=== PATIENT | female | born 1985 | race Caucasian/White ===

== ENCOUNTER → 2018-06-02 | Outpatient (CLI) | payer BC | LOC: FIMAGING 07:23 | PROVIDERS: ATTEND Hospitalist | DX: O09.522 Supervision of elderly multigravida, second trimester (principal); Z3A.19 19 weeks gestation of pregnancy; Z86.73 Personal history of transient ischemic attack (TIA), and cerebral infarction without residual deficits ==

== ENCOUNTER → 2018-07-03 | Outpatient (CLI) | payer BC | LOC: FIMAGING 07:51 | PROVIDERS: ATTEND Obstetrics & Gynecology | DX: O09.812 Supervision of pregnancy resulting from assisted reproductive technology, second trimester (principal); O26.22 Pregnancy care for patient with recurrent pregnancy loss, second trimester; Z3A.24 24 weeks gestation of pregnancy ==

== ENCOUNTER 2018-10-16 06:10 | Inpatient (IN) | payer BC ==
[2018-10-16] MEDS ORDERED: LIDOCAINE 1% 300 MG/30 ML SDV SC PRN (06:16)
[2018-10-16] MEDS ORDERED: LR 500 ML IV PRN (06:16)
[2018-10-16] MEDS ORDERED: EPSOM SALT 454 GM TP PRN (06:16)
[2018-10-16] MEDS ORDERED: OXYTOCIN/RINGERS LACTATE 1,000 ML IV PRN (06:16)
[2018-10-16] MEDS ORDERED: IBUPROFEN 600 MG TAB PO PRN (06:16)
[2018-10-16] MEDS ORDERED: MISOPROSTOL 200 MCG TAB PR PRN (06:16)
[2018-10-16] MEDS ORDERED: LR 1,000 ML IV PRN (06:16)
[2018-10-16] MEDS ORDERED: OLIVE OIL 118 ML BTL MISC PRN (06:16)
[2018-10-16] MEDS ORDERED: OXYTOCIN/RINGERS LACTATE 500 ML IV SCH (06:16)
[2018-10-16 06:58] LABS: PLATELET COUNT 186 10^3/uL (150-400)
[2018-10-16] MEDS ORDERED: MAGNESIUM HYDROXIDE 30 ML UDCUP PO PRN (08:31)
[2018-10-16] MEDS ORDERED: BISACODYL 10 MG SUPP PR PRN (08:31)
[2018-10-16] MEDS ORDERED: POLYETHYLENE GLYCOL 3350 17 GM PKT PO PRN (08:31)
[2018-10-16] MEDS ORDERED: LACTULOSE 20 GM/30 ML UDCUP PO PRN (08:31)
[2018-10-16] MEDS ORDERED: LORazepam 2 MG/ML INJ IVP PRN (08:45)
[2018-10-16] MEDS ORDERED: CALCIUM CARBONATE 500 MG CHEWABLE TAB PO PRN (09:03)
[2018-10-16] MEDS: SIMETHICONE 80 MG TAB CHEW PO SCH (09:08)
--- NOTE | 2018-10-16 10:37 | GHP ---
[f rep st] PREOP HISTORY AND PHYSICAL DATE OF ADMISSION: 10/16/2018 HISTORY UPON ADMISSION: The patient is a 33-year-old, G3, P0, A2, at 39 weeks' gestation with an est imated due date of 10/23/2018, who presents for elective induction of labor. The patient had previou sly been planned for an elective primary section due to a lifelong phobia of labor and vagin al ; however, recent discussions, the patient now feels like she wants to try labor. The patien t has only recently considered this, so really has not done labor planning. The patient was found to have a favorable cervix on an office visit on 10/15, with a cervix 2-3 cm dilated, 90% effa deniz, and the head at 0 station. The patient did not need a Cavazos catheter for cervical ripenin g. The patient reports good movement and no leakage of fluid. She had slight vaginal bleeding last p.m. after the vaginal exam. The patient has felt lower menstrual cramping and had what she th ought was bladder spasms yesterday and had a urinalysis done at the office, which showed moderate ket ones and trace protein. The patient has reported having bowel irritation and nausea throughout the d ay yesterday. She was having quite a bit of loose stools and diarrhea over the last several weeks. She did have a workup with a stool culture with negative C difficile, negative Salmonella, negative L isteria testing. The patient has a history of bowel issues in the past. The patient is here for adm ission and has been advised of the plan of Pitocin gradually increasing with pain management with nit haley, epidural, and anti-anxiety medicines if needed. The patient has significant worry about feelin g out of control and going into a panic attack, but states that she has never had anxieties for other issues in life and has never had a panic attack before. PAST HISTORY: The patient conceived with IVF in [place] and transferred care after moving to [place] at 14 weeks. 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 The patient also had early testing which was all normal. The patient had periodic issues with rash is in the , but that is not uncommon for the patient. The patient had an ultrasound at 20 weeks with a maternal- specialist, and the baby estimated 93rd percenti le with weight. The patient had a followup ultrasound at 30 weeks, and the estimated weight wa s 76th percentile with the BPD measuring greater than the 98th percentile. The patient has a history in 2012 of a TIA, which was found to be a vertebral artery dissection. The records from that event from [place] were reviewed by the maternal- specialist. The patient at that time in [place] martin d seen a clinching machine operator and has had coagulopathy workup that was all negative. The patient states she was also seen by a neurologist in [place] who did not feel the patient had any real restrictions for or labor or general life activities. She was advised to be on low-dose aspirin, which she has continued through the until 2 days ago. The patient also had an echo done due to the history of the IVF, and this was negative. The patient had the above-mentioned GI issues predominant ly after 35 weeks and had the negative workup. labs include maternal blood type B positive with negative antibody screen. Initial CBC reve aled a hematocrit of 39%, and mid , this dropped to 36%. Platelets stable through . RPR nonreactive. Rubella immune. Hepatitis B surface antigen negative. HIV negative. Patient h ad glucose testing in December and also a repeat at 28 weeks, and this was normal. Patient has the pos itive carrier status for 2 rare disorders, and the is negative. Urine drug screen was negati ve. Urinalysis and culture negative. Gonorrhea and chlamydia negative. Verify chromosome testing w as negative, and negative MSAFP. Patient immune to chickenpox and nonimmune to toxo. GBS culture wa s negative. 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 H istory of a large splenic cyst removed in 2009. History of pneumonia in 2015. SIBA noted prior to t he IVF. History of an abnormal Pap smear with positive HPV 15 years ago, with negative Pap since. P atient denies any common history of anxiety or depression, but reports very specific anxiety lifelong for labor and . 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 Deviated septum in 2009. PAST OBSTETRIC HISTORY: Spontaneous AB at 7 weeks in 2011 and a spontaneous AB in May 2017 at 7- 1/2 weeks managed with a D and C, and noted to be a trisomy 13. SOCIAL HISTORY: The patient is , lives with her . The patient is a nonsmoker. No alc ohol use since initiating IVF, and only social alcohol outside of that. No drug use. ALLERGIES: Penicillin, causing hives; and lactose, causing bloating. CURRENT MEDICATIONS: vitamins, low-dose aspirin up to 2 days ago, vitamin D. LABS UPON ADMISSION: The patient had a CBC on admission showing a white count of 9, hemoglobin of 13 , hematocrit of 38, platelets 186,000. Patient had labs done on 10/03, evaluating itchiness of the p alms, which revealed normal liver functions and bile acids. PHYSICAL EXAMINATION UPON ADMISSION: GENERAL: The patient is a well-developed, well-nourished white female in no physical distress, but anxious upon admission. VITAL SIGNS: The patient has normal vi oscar signs with blood pressure 113/68, patient is afebrile, and other vital signs have been normal. S nursing documentation for full details. Initial monitoring on exam reveals an initial reactive NS T with accelerations and good variability, with a baseline in the 130s to 140s. Continuous monitorin g continues to show a category 1 tracing with great accelerations and no sign of any decelerations. No contractions initially noted; however, now on initiating Pitocin, the patient is having mild contr actions. PELVIC: No pelvic exam is repeated, with the recent exam in the office showing 2-3 cm dila tariq, 90% effaced, and 0 station. By Harry's, the back feels up on the right in vertex presentation . EXTREMITIES: Nontender and no edema. ASSESSMENT: Intrauterine at 39 weeks' gestation with elective induction of labor to optimi ze patient feeling control of the situation, as she has high anxiety about labor and delivery. The p atient has been encouraged to attempt labor as opposed to a primary elective section. We wi ll optimize having the patient have choices with pain management, and we will continue monitoring to ensure baby safety. Patient will try Mylicon and Tums to see if she can help her stomach discomfort. GBS negative. Blood type B positive. History of transient ischemic attack with spontaneous verteb ral artery dissection in 2012, and has been on low-dose aspirin. Estimated weight at 30 weeks, 76th percentile, with biparietal diameter greater than 98th percentile. PLAN: We will continue to slowly increase Pitocin, and the patient plans for an epidural when she ne eds it. We will perform AROM after the epidural. /[id number]/MODL
--- NOTE | 2018-10-16 11:08 | OBPROG ---
Labor Progress Note Assessment/Plan: Assessment: IUP at 39 wks elective IOL Plan: cont pitocin, on 8 mu/min currently - minimal intensity. Will AROM if pit up to 20 mu/min and minimal intensity. PAIGE before if desired. 10/16/18 11:02 Subjective/Intrapartum Course: 10/16/18 11:04 Pt doing great - feels very relaxed. occas feels tightening - no pain. disc IUPC prn if cord compression is ongoing issue or ctxn monitoring prn. off/on nausea and wants to try zofran. on 8 mu/min pit - cat I tracing except one small variable with ctxn Objective: 10/16/18 06:45 Patient ABO/Rh B POSITIVE 10/16/18 06:45 - SVE Membranes: Intact - Contraction Pattern Assessment Current Contraction Pattern: Regular (q 5-7 min on 8 pit) - FHR Assessment Phillips FHR (bpm): 140 FHR Pattern Variability: Moderate FHR Category: 2 (one small variable with ctxn - o/w cat I) Oxytocin Orders Assessment - Pre-Induction/Augmentation Assessment Gestational Age: 39 week(s) and 0 day(s) ICD10 Worksheet Patient Problems: Problems Problem Status Onset Encounter for induction of labor Acute
[2018-10-16] MEDS ORDERED: ONDANSETRON DISINTEGRATING 4 MG TAB PO PRN (11:09)
[2018-10-16] MEDS ORDERED: ONDANSETRON DISINTEGRATING 4 MG TAB ONE (11:19)
[2018-10-16] MEDS ORDERED: LIDOCAINE 1% 300 MG/30 ML SDV ONE (13:47)
[2018-10-16] MEDS ORDERED: OLIVE OIL 118 ML BTL MISC ONE (13:47)
[2018-10-16] MEDS ORDERED: TERBUTALINE SULFATE 1 MG/ML VIAL ONE (13:48)
[2018-10-16] MEDS ORDERED: OXYTOCIN 10 UNIT/ML VIAL ONE (13:48)
[2018-10-16] MEDS ORDERED: MISOPROSTOL 200 MCG TAB ONE (13:48)
[2018-10-16] MEDS ORDERED: AMMONIA AROMATIC 1 EACH AMP IH ONE (13:48)
--- NOTE | 2018-10-16 14:39 | OBPROG ---
Labor Progress Note Assessment/Plan: Assessment: IUP at 39 wks elective IOL - extreme anxiety about labor and hx vertebral artery dissection, TIA Plan: cont pitocin, on 20 mu/min currently - minimal intensity. AROM done with nitrous. PAIGE if desired. 10/16/18 11:02 10/16/18 14:34 Subjective/Intrapartum Course: 10/16/18 11:04 Pt doing great - feels very relaxed. occas feels tightening - no pain. disc IUPC prn if cord compression is ongoing issue or ctxn monitoring prn. off/on nausea and wants to try zofran. on 8 mu/min pit - cat I tracing except one small variable with ctxn 10/16/18 14:36 Pt doing well. discussed AROM as pt on 20 mu/min pit and not uncomfortable. Pt declined PAIGE now and used nitrous during AROM - 14:25, clear. cx 3-4/95/0 will get PAIGE when ready - reports strong cramping now. Objective: 10/16/18 06:45 Patient ABO/Rh B POSITIVE 10/16/18 06:45 - SVE Dilation (cm): 3 (3-4) Effacement (%): 90 Station: 0 Membranes: Intact Amniotic Fluid Color: Clear - Contraction Pattern Assessment Current Contraction Pattern: Regular (q 53-4 min on 20 pit) - FHR Assessment Phillips FHR (bpm): 140 FHR Pattern Variability: Moderate FHR Category: 1 - Procedures Non-surgical Procedures: Amniotomy (14:25) Oxytocin Orders Assessment - Pre-Induction/Augmentation Assessment Gestational Age: 39 week(s) and 0 day(s) ICD10 Worksheet Patient Problems: Problems Problem Status Onset Encounter for induction of labor Acute
[2018-10-16] MEDS ORDERED: fentaNYL 2MCG/ML/BUP 0.1% RTU 100 ML BAG EP ONE (15:19)
[2018-10-16] MEDS ORDERED: PHENYLEPHRINE HCL 100 MCG/ML SYR IVP PRN ×2 (15:55→22:32)
[2018-10-16] MEDS ORDERED: NALOXONE HCL 0.4 MG/ML INJ IVP PRN ×3 (15:55→22:36)
[2018-10-16] MEDS ORDERED: ONDANSETRON 4 MG/2 ML VIAL IVP PRN ×2 (15:55→22:32)
[2018-10-16] MEDS ORDERED: fentaNYL 2MCG/ML/BUP 0.1% RTU 100 ML EP SCH (16:00)
[2018-10-16] MEDS ORDERED: LR 500 ML IV SCH (16:00)
--- NOTE | 2018-10-16 16:00 | PREANESOB ---
Obstetric Pre-Anesthesia Info - General Info Proposed Procedure: vaginal delivery : 3 Para: 0 CONNOR: 10/23/18 Gestational Age: 39 week(s) and 0 day(s) - Info Status: Full Term Monitors: External FHR Pattern: Reassuring - Labor Status Cervical Dilation per last OB SVE: 3 (3-4) Station per last OB SVE: 0 Amniotic Fluid Color: Clear Pitocin: In Use Labor Epidural: Proposed Anesthesia ROS: h/o TIA (vertebral artery) about 7 years ago, no sequelae no GERD, no respiratory issues, no cardiac history Allergies/Adverse Reactions: Allergy/AdvReac Type Severity Reaction Status Date / Time Penicillins Allergy Hives Verified 10/10/18 16:38 Visit Medications: Generic Name Dose Route Start Last Admin Trade Name Freq PRN Reason Stop Dose Admin Bisacodyl 10 mg 10/16/18 08:31 Dulcolax Rectal LA 04/14/19 08:30 DAILY PRN Constipation Protocol Calcium Carbonate 500 mg 10/16/18 09:03 Tums PO 04/14/19 09:02 TID PRN Indigestion Lactated Ringer's 500 mls @ 500 mls/hr 10/16/18 06:16 Lr IV PRN PRN Maternal Hypotension Lactated Ringer's 1,000 mls @ 0 mls/hr 10/16/18 06:16 Lr IV 10/17/18 06:15 PRN PRN SEE PROTOCOL CONDITIONS Protocol Per Protocol Oxytocin/Lactated Ringer's 500 mls @ 0 mls/hr 10/16/18 06:16 Pitocin 30 Units/Lr (Premix) IV 04/14/19 06:15 CONT GEOVANI Protocol Per Protocol Oxytocin/Lactated Ringer's 1,000 mls @ 125 mls/hr 10/16/18 06:16 Pitocin 20 Units/Lr (Premix) IV PRN PRN Post bleeding Fentanyl/Bupivacaine HCl 100 mls @ 0 mls/hr 10/16/18 16:00 Fentanyl/Bupivacaine/Ns 2 Mcg/Ml 0.1% (Premix EP 10/26/18 15:59 CONT GEOVANI Protocol As Directed Lactated Ringer's 500 mls @ 0 mls/hr 10/16/18 16:00 Lr IV 04/14/19 15:59 CONT [facility] As Directed Ibuprofen 600 mg 10/16/18 06:16 Motrin PO ONCE PRN post , pain Lactulose 20 gm 10/16/18 08:31 Cephulac PO 04/14/19 08:30 TID PRN Constipation Protocol Lidocaine HCl 300 mg 10/16/18 06:16 Lidocaine Hcl 1% SC 04/14/19 06:15 ONCE PRN episiotomy Lorazepam 1 mg 10/16/18 08:45 Ativan Injection IVP 04/14/19 08:44 Q4HRS PRN Anxiety, Unable to Take PO Magnesium Hydroxide 30 ml 10/16/18 08:31 Milk Of Magnesia PO 04/14/19 08:30 DAILY PRN Constipation Protocol Magnesium Sulfate 454 gm 10/16/18 06:16 Epsom Salt TP 04/14/19 06:15 Q1H PRN perineal discomfort Misoprostol 800 - 1,000 mcg 10/16/18 06:16 Cytotec LA ONCE PRN Vaginal Atony/Bleeding Naloxone HCl 0.4 mg 10/16/18 15:55 Narcan IVP 04/14/19 15:54 PRN PRN Respiratory depression Benkelman Oil 118 ml 10/16/18 06:16 Sweet Oil MISC 04/14/19 06:15 ONCE PRN perineal massage Ondansetron HCl 4 mg 10/16/18 11:09 Zofran Odt PO 04/14/19 11:08 Q4HRS PRN Nausea/Vomiting, Use 1st Ondansetron HCl 4 mg 10/16/18 15:55 Zofran IVP 10/17/18 15:54 Q4HRS PRN Nausea/Vomiting, Can't Take PO Phenylephrine HCl 100 mcg 10/16/18 15:55 Neosynephrine IVP 04/14/19 15:54 .Q2M PRN Hypotension Polyethylene Glycol 17 gm 10/16/18 08:31 Miralax PO 04/14/19 08:30 DAILY PRN Constipation, patient prefers Protocol Senna/Docusate Sodium 1 - 2 tab 10/16/18 09:00 Senokot-S PO 04/14/19 08:59 BID GEOVANI Protocol Simethicone 80 mg 10/16/18 09:00 10/16/18 09:08 Mylicon PO 04/14/19 08:59 80 mg PCHS GEOVANI Administration Discontinued Medications Generic Name Dose Route Start Last Admin Trade Name Freq PRN Reason Stop Dose Admin Ammonia (Aromatic Spirit) Confirm 10/16/18 13:48 Ammonia Aromatic Administered 10/16/18 13:49 Dose 1 each IH .STK-MED ONE Fentanyl/Bupivacaine HCl Confirm 10/16/18 15:19 Fentanyl/Bupivacaine/Ns 2 Mcg/Ml 0.1% (Premix Administered 10/16/18 15:20 Dose 100 ml EP .STK-MED ONE Lidocaine HCl Confirm 10/16/18 13:47 Lidocaine Hcl 1% Administered 10/16/18 13:48 Dose 300 mg .ROUTE .STK-MED ONE Misoprostol Confirm 10/16/18 13:48 Cytotec Administered 10/16/18 13:49 Dose 1,000 mcg .ROUTE .STK-MED ONE Benkelman Oil Confirm 10/16/18 13:47 Sweet Oil Administered 10/16/18 13:48 Dose 118 ml MISC .STK-MED ONE Ondansetron HCl Confirm 10/16/18 11:19 Zofran Odt Administered 10/16/18 11:20 Dose 4 mg .ROUTE .STK-MED ONE Oxytocin Confirm 10/16/18 13:48 Pitocin Administered 10/16/18 13:49 Dose 40 unit .ROUTE .STK-MED ONE Terbutaline Sulfate Confirm 10/16/18 13:48 Brethine Administered 10/16/18 13:49 Dose 1 mg .ROUTE .STK-MED ONE - Anesthesia History Response to Local Anesthetics: Normal Anesthesia & Operative History: No Prior Problems - Social History Substance Use/Abuse: Denies - Vital Signs Latest Vital Signs (Nursing): see nursing notes Height/Weight (Nursing): Height 170.18 cm Weight 73.482 kg Weight: 170 kg Height: 73 cm - Focused Exam Neck exam: FROM Mallampati Score: Class 2 Mouth exam: normal dental/mouth exam Pulmonary: clear to auscultation Cardiovascular: regular rate and rhythym Labs: 10/16/18 06:45 Patient ABO/Rh B POSITIVE 10/16/18 06:45 - Plan Anesthetic Plan: PAIGE Consent Signed and on Chart: Yes Urgent/Emergent Case: Juan butler completed preop but documented later for safe timely pt care General Comments: Easy PAIGE placement on first pass
[2018-10-16] MEDS ORDERED: ACETAMINOPHEN 500 MG TAB PO ONE (19:40)
--- NOTE | 2018-10-16 20:18 | OBPROG ---
Labor Progress Note Assessment/Plan: Assessment: IUP at 39 wks elective IOL - extreme anxiety about labor and hx vertebral artery dissection, TIA great progress today and complete approx 6:15 pushing now about 1 1/2 hrs - making progress Plan: cont pitocin, on 20 mu/min currently - just reduced from 22. AROM. PAIGE. cont pushing 10/16/18 11:02 10/16/18 14:34 10/16/18 20:15 Subjective/Intrapartum Course: 10/16/18 11:04 Pt doing great - feels very relaxed. occas feels tightening - no pain. disc IUPC prn if cord compression is ongoing issue or ctxn monitoring prn. off/on nausea and wants to try zofran. on 8 mu/min pit - cat I tracing except one small variable with ctxn 10/16/18 14:36 Pt doing well. discussed AROM as pt on 20 mu/min pit and not uncomfortable. Pt declined PAIGE now and used nitrous during AROM - 14:25, clear. cx 3-4/95/0 will get PAIGE when ready - reports strong cramping now. 10/16/18 20:18 great progress today with complete approx 6:15. began having slight increase of baseline since approx 7:15 from 140s. low grade temp and given tyl at approx 7:45. making progress with pushing -- pt frustrated with demand of pushing Objective: 10/16/18 06:45 Patient ABO/Rh B POSITIVE 10/16/18 06:45 - SVE Dilation (cm): 10 Effacement (%): 100 Station: +1 Membranes: AROM Amniotic Fluid Color: Clear Dilation Complete Date: 10/16/18 Dilation Complete Time: 18:15 - Contraction Pattern Assessment Current Contraction Pattern: Regular (q 3 min on 20 pit) - FHR Assessment Phillips FHR (bpm): 170 FHR Pattern Variability: Moderate FHR Category: 2 ( tachycardia - baseline risen since 19:15 - given tyl 19: 45, good variability and accels) - Procedures Non-surgical Procedures: Amniotomy (14:25) Oxytocin Orders Assessment - Pre-Induction/Augmentation Assessment Gestational Age: 39 week(s) and 0 day(s) ICD10 Worksheet Patient Problems: Problems Problem Status Onset Encounter for induction of labor Acute
[2018-10-16] MEDS ORDERED: AZITHROMYCIN IV 500 MG in NS 250 ML IV ONE (21:12)
[2018-10-16] MEDS ORDERED: CEFAZOLIN 2 GM/DEXTROSE/100 ML BAG IV ONE (21:17)
[2018-10-16] MEDS ORDERED: LIDO/EPI 2% **for epidural** 20 ML SDV ONE (21:18)
--- NOTE | 2018-10-16 21:18 | OBPROG ---
Labor Progress Note Assessment/Plan: Assessment: IUP at 39 wks -- INTOL TO PUSHING - ELEV BASELINE TO 170-180S ATTEMPTED VAVD - NO DESCENT - PROCEED TO C/S elective IOL - extreme anxiety about labor and hx vertebral artery dissection, TIA great progress today and complete approx 6:15 pushing now about 2 hrs Plan: attempted VAVD but no descent with 3 pushes 10/16/18 11:02 10/16/18 14:34 10/16/18 20:15 10/16/18 21:13 Subjective/Intrapartum Course: 10/16/18 11:04 Pt doing great - feels very relaxed. occas feels tightening - no pain. disc IUPC prn if cord compression is ongoing issue or ctxn monitoring prn. off/on nausea and wants to try zofran. on 8 mu/min pit - cat I tracing except one small variable with ctxn 10/16/18 14:36 Pt doing well. discussed AROM as pt on 20 mu/min pit and not uncomfortable. Pt declined PAIGE now and used nitrous during AROM - 14:25, clear. cx 3-4/95/0 will get PAIGE when ready - reports strong cramping now. 10/16/18 20:18 great progress today with complete approx 6:15. began having slight increase of baseline since approx 7:15 from 140s. low grade temp and given tyl at approx 7:45. making progress with pushing -- pt frustrated with demand of pushing 10/16/18 21:18 Pt very fatigued and frustrated - on exam with pushing still +1 -- adeq pelvis and pt desired attempt with vacuum - no descent and significant decel with third attempt. FHT baseline still up to 180s but maintaining variability. rec proceeding to c/s Objective: 10/16/18 06:45 Patient ABO/Rh B POSITIVE 10/16/18 06:45 - SVE Dilation (cm): 10 Effacement (%): 100 Station: +1 Membranes: AROM Amniotic Fluid Color: Clear Dilation Complete Date: 10/16/18 Dilation Complete Time: 18:15 - Contraction Pattern Assessment Current Contraction Pattern: Regular (q 3 min on 20 pit) - FHR Assessment Twin A FHR (bpm): 170 FHR Pattern Variability: Moderate FHR Category: 2 (tachy) - Procedures Non-surgical Procedures: Amniotomy (14:25) Oxytocin Orders Assessment - Pre-Induction/Augmentation Assessment Gestational Age: 39 week(s) and 0 day(s) ICD10 Worksheet Patient Problems: Problems Problem Status Onset Encounter for induction of labor Acute
[2018-10-16] MEDS ORDERED: CLINDAMYCIN 900 MG/DEXTROSE 50 ML IV ONE (21:21)
[2018-10-16] MEDS ORDERED: PROPOFOL 200 MG/20 ML VIAL ONE (21:22)
[2018-10-16] MEDS ORDERED: ceFAZolin 2 GM/DEXTROSE 100 ML IV ONE (21:30)
[2018-10-16] MEDS ORDERED: MIDAZOLAM 2 MG/2 ML VIAL ONE (21:46)
[2018-10-16] MEDS ORDERED: morphINE PF 5 MG/10 ML INJ ONE (21:56)
[2018-10-16] MEDS ORDERED: PHENYLEPHRINE HCL 100 MCG/ML SYR ONE ×2 (22:28)
[2018-10-16] MEDS ORDERED: MEPERIDINE 25 MG/0.5 ML AMP IVP PRN (22:32)
[2018-10-16] MEDS ORDERED: fentaNYL 100 MCG/2 ML INJ IVP PRN (22:32)
[2018-10-16] MEDS ORDERED: METOCLOPRAMIDE 10 MG/2 ML VIAL IVP PRN (22:32)
[2018-10-16] MEDS ORDERED: LABETALOL HCL 5 MG/ML 20 ML MDV IVP PRN (22:32)
--- NOTE | 2018-10-16 23:04 | POSTANESTH ---
Post Anesthetic Evaluation Cardiovascular Status: Normal, Stable Respiratory Status: Normal, Stable Level of Consciousness/Mental Status: Can Participate in Eval Pain Control: Adequate, Prn Tx Ordered Nausea/Vomiting Control: Adequate, Prn Tx Ordered Complications Possibly Related to Anesthesia: None Noted (Pt doing well s/p PAIGE converted to C/S. Epidural used for C/S. No complications.)
[2018-10-16] MEDS ORDERED: oxyCODONE IR 5 MG TAB PO PRN (23:09)
[2018-10-16] MEDS ORDERED: IBUPROFEN 600 MG TAB PO SCH (23:30)
[2018-10-16] MEDS: KETOROLAC 30 MG/1 ML SDV IVP SCH (23:37)
--- NOTE | 2018-10-16 23:40 | OBDEL ---
Info Type: Primary Presentation at Delivery: Vertex L&D Analgesia/Anesthesia Type: Epidural (with duramorph) GBS+: No Intrapartum Medications: Generic Name Dose Route Start Last Admin Trade Name Freq PRN Reason Stop Dose Admin Ondansetron HCl 4 mg 10/16/18 11:09 10/16/18 16:40 Zofran Odt PO 04/14/19 11:08 4 mg Q4HRS PRN Administration Nausea/Vomiting, Use 1st Phenylephrine HCl 100 mcg 10/16/18 15:55 10/16/18 23:03 Neosynephrine IVP 04/14/19 15:54 100 mcg .Q2M PRN Administration Hypotension Simethicone 80 mg 10/16/18 09:00 10/16/18 09:08 Mylicon PO 04/14/19 08:59 80 mg PCHS GEOVANI Administration Discontinued Medications Generic Name Dose Route Start Last Admin Trade Name Freq PRN Reason Stop Dose Admin Acetaminophen 1,000 mg 10/16/18 19:40 10/16/18 19:44 Tylenol PO 10/16/18 19:41 1,000 mg ONCE ONE Administration - Hospital Course Intrapartum: 10/16/18 11:04 Pt doing great - feels very relaxed. occas feels tightening - no pain. disc IUPC prn if cord compression is ongoing issue or ctxn monitoring prn. off/on nausea and wants to try zofran. on 8 mu/min pit - cat I tracing except one small variable with ctxn 10/16/18 14:36 Pt doing well. discussed AROM as pt on 20 mu/min pit and not uncomfortable. Pt declined PAIGE now and used nitrous during AROM - 14:25, clear. cx 3-4/95/0 will get PAIGE when ready - reports strong cramping now. 10/16/18 20:18 great progress today with complete approx 6:15. began having slight increase of baseline since approx 7:15 from 140s. low grade temp and given tyl at approx 7:45. making progress with pushing -- pt frustrated with demand of pushing 10/16/18 21:18 Pt very fatigued and frustrated - on exam with pushing still +1 -- adeq pelvis and pt desired attempt with vacuum - no descent and significant decel with third attempt. FHT baseline still up to 180s but maintaining variability. rec proceeding to c/s Vaginal Delivery - Labor and Delivery Amniotic Fluid Color: Clear Dilation Complete Date: 10/16/18 Dilation Complete Time: 18:15 Non-surgical Procedures: Amniotomy (14:25) Cord Gases: Cord Gases Cord Blood PCO2 37.8 mmHg (37-60) 10/16/18 22:40 Cord Base Excess -9.1 mEq/L (-13.6--3.2) 10/16/18 22:40 Cord ABG pH 7.27 (7.10-7.37) 10/16/18 22:40 Cord VBG pH 7.34 (7.20-7.42) 10/16/18 22:40 Operative Report - Delivery Pre-op Diagnoses: IUP at 39 wks, intolerance to descent Post-op Diagnoses: same, delivered History of Prior Section: No Nulliparous Prior to Delivery: No Indications for Current Section: Non-reas. Status Procedure: Unscheduled, Low Transverse Surgeon: Praveena Hamilton Strategic Planning Specialist: Fallon Voss Anesthesiologist: Dustin Starks Complications: None Findings: normal ut, tubes and ovaries. brito replaced in OR and concentrated/ blood tinged urine. clear amniotic fluid. low head - upon elevating upwards the head rotated from OP to transverse - right shoulder directly up behind symphysis. No NC - vigorous upon delivery with good tone and crying. Bruised face with blanching appearance on forehead. cord clamp after 1 min and off to warmer. cord gases obtained. placenta removed easily and intact. ut externalized and interior wiped clean. hysterotomy inspected and inferior ext on left angle. furthest point identified and ext closed first. good hemostasis. hysterotomy then closed. ext and hysterotomy closed with second imbricating layer. minimal bovie needed. irrigation done. ut replaced and good hemostasis. rectus m reapproximated. UOP 50 cc concentrated urine. IV Fluid (ml): 1,000 EBL: 1000 Cord Gases: Cord Gases Cord Blood PCO2 37.8 mmHg (37-60) 10/16/18 22:40 Cord Base Excess -9.1 mEq/L (-13.6--3.2) 10/16/18 22:40 Cord ABG pH 7.27 (7.10-7.37) 10/16/18 22:40 Cord VBG pH 7.34 (7.20-7.42) 10/16/18 22:40 Assissted Delivery Assisted Delivery Type: Vacuum Pulls (Total): 3 Assisted Delivery Comment: VAVD attempted in room. significant decel with third pull and lack of descent - advised to proceed with c/s Gallina Data CONNOR: 10/23/18 Gestational Age: 39 week(s) and 0 day(s) Phillips Delivery Date: 10/16/18 Delivery Time: 21:50 Sex of : Male Weight (gm): 3765 g (8#5) Score (1 Min): 8 Score (5 Min): 9 ICD10 Worksheet Patient Problems: Problems Problem Status Onset S/P primary low transverse Acute
[2018-10-17] MEDS: SIMETHICONE 80 MG TAB CHEW PO SCH ×8 (01:04→21:03)
[2018-10-17] MEDS: SENNOSIDES/DOCUSATE SODIUM TAB PO SCH ×4 (01:05→21:04)
[2018-10-17] MEDS: KETOROLAC 30 MG/1 ML SDV IVP SCH ×4 (05:46→18:25)
[2018-10-17] MEDS: ACETAMINOPHEN 325 MG TAB PO SCH ×4 (07:07→23:33)
--- NOTE | 2018-10-17 09:41 | OBPP ---
Progress Note Assessment/Plan: Assessment: 1) 33 y/o G3 now P1 s/p PCS secondary to arrest of descent and vacuum- assistance x 3 with tachy POD #1 - pt is stable 2) Anemia - pt is asymptomatic Plan: Continue routine post-op care Encourage ambulation Brito to be removed this am Will start iron support prn 10/17/18 09:42 Subjective/ Course: 10/17/18 09:44 Pt seen and examined. Doing well, with no complaints. Pain is well controlled with Toradol so far. Pt has been OOB once, kim regular diet, brito in place and passing flatus. Denies any f/c/n/v/CP or SOB. Mild lochia. BF now, but baby boy is falling asleep on the breast. Denies any dizziness when up OOB. Objective: 10/17/18 05:15 Patient ABO/Rh B POSITIVE 10/16/18 06:45 Temp Pulse Resp BP Pulse Ox 36.7 C 91 16 98/43 L 94 10/17/18 08:08 10/17/18 08:08 10/17/18 08:08 10/17/18 08:08 10/17/18 08:08 Uterine Position/Fundal Height: Umbilicus -1 Uterine Tone: Firm Physical Exam - Physical Exam General Appearance: WD/WN, alert, no apparent distress Respiratory: lungs clear, normal breath sounds Cardiac/Chest: regular rate, rhythm Abdomen: normal bowel sounds, non-tender (appropriate tenderness), soft, flatus (+), incision (C/D/I with dressing in place), dressing (C/D/I without shadowing) Extremities: non-tender, normal inspection (with SCDs in place) Skin: normal color, warm/dry Neuro/Psych: alert, normal mood/affect, oriented x 3
[2018-10-17] MEDS: FERRO-SEQUELS 65 MG TAB.ER PO SCH ×2 (11:23→21:02)
--- NOTE | 2018-10-17 12:08 | PDPAINCON ---
Pain Management Consultation Patient referred by : Joy - Subjective Pain is: low, well controlled Activity: able to ambulate - Objective Technique: spinal opioid Vital signs: stable - Assessment/Plan Assessment/Plan: pain well-controlled, continue current mgmt (Pt doing well s/p PAIGE converted to C/S with epidural duramorph given. Pain well controlled with no side effects. Pt denies any headache or backache. Full return of motor and sensory function in lower extremities.)
--- NOTE | 2018-10-17 14:34 | ASMTCMCOM ---
CM Note CM Note Notes: Met with Ursula and her , John and their , Nakul. Ursula states both she and her will get several weeks off from work to make this transition in their life. Both employers have been very supportive of their starting a family and being flexible. Ursula plans to take 8 weeks and states both she and her can health worker when needed. Ursula states she is not an anxious person but was anxious about childbirth because she has a low pain threshhold and it was the unknown. She actually was disappointed the vaginal process had to be changed to Csection. Ursula states they have a fully equipped nursery and child car seat that was checked by the fire department. John's parents are here and Ursula's mother will come for a visit. Ursula's best friend is a auto body technician in [place] and she can call her at any time with questions. The couple will be followed by [facility] which is right next to John's work place. They are already signed up for daycare and the daycare is right next to John's workplace as well. They do have a section of the road to their house that is dirt road and bumpy but it is only 15 minutes to the closest [facility]. Ursula has her breast pump equipment and has had a session with the telecommunications consultant. Ursula says her son has "latched on" and the is going well. She is appreciative of Dr. Hamilton and how she has supported her and coached her through this process. Ursula and her are looking forward to quiet time together as a family at home. John took a parenting class that covered the symptoms of post depression and Ursula and John have discussed how they plan to check in with each other to get early intervention if Ursula has any symptoms. Ursula will also be following up with [facility]. The family has the resources they need currently. CM is available if any d/c needs arise. Date Signed: 10/17/2018 02:33 PM Electronically Signed By:Tawny Guy LCSW
[2018-10-17] MEDS: IBUPROFEN 600 MG TAB PO SCH ×2 (18:03→23:32)
[2018-10-18] MEDS: ACETAMINOPHEN 325 MG TAB PO SCH ×3 (05:27→18:25)
[2018-10-18] MEDS: IBUPROFEN 600 MG TAB PO SCH ×3 (05:27→18:29)
[2018-10-18] MEDS: FERRO-SEQUELS 65 MG TAB.ER PO SCH (09:13)
[2018-10-18] MEDS: SENNOSIDES/DOCUSATE SODIUM TAB PO SCH (09:14)
[2018-10-18] MEDS: SIMETHICONE 80 MG TAB CHEW PO SCH (09:15)
--- NOTE | 2018-10-18 11:58 | OBPP ---
Progress Note Assessment/Plan: Assessment: 1) 33 y/o G3 now P1 s/p PCS secondary to arrest of descent and vacuum- assistance x 3 with tachy POD #2 - pt is stable 2) Anemia - pt is asymptomatic, encouraged iron supps. Plan: Continue routine post-op care Encourage ambulation Brito to be removed this am support prn\ Would like to go home tomorrow AM. Subjective/ Course: 10/17/18 09:44 Pt seen and examined. Doing well, with no complaints. Pain is well controlled with Toradol so far. Pt has been OOB once, kim regular diet, brito in place and passing flatus. Denies any f/c/n/v/CP or SOB. Mild lochia. BF now, but baby boy is falling asleep on the breast. Denies any dizziness when up OOB. 10/18/18 13:38 Feeling good - would probably like to go home tomororw. Objective: 10/17/18 05:15 Patient ABO/Rh B POSITIVE 10/16/18 06:45 Temp Pulse Resp BP Pulse Ox 36.6 C 93 16 115/69 96 10/18/18 05:33 10/18/18 05:33 10/18/18 05:33 10/18/18 05:33 10/18/18 05:33 Uterine Position/Fundal Height: Umbilicus -2 Uterine Tone: Firm Physical Exam - Physical Exam Abdomen: incision (CDI steri strips sutures)
[2018-10-19] MEDS: IBUPROFEN 600 MG TAB PO SCH ×3 (00:39→12:51)
[2018-10-19] MEDS: SENNOSIDES/DOCUSATE SODIUM TAB PO SCH ×2 (00:39→09:09)
[2018-10-19] MEDS: ACETAMINOPHEN 325 MG TAB PO SCH ×3 (00:39→12:50)
[2018-10-19] MEDS: FERRO-SEQUELS 65 MG TAB.ER PO SCH ×2 (00:43→09:08)
[2018-10-19] MEDS: SIMETHICONE 80 MG TAB CHEW PO SCH ×5 (00:43→15:39)
--- NOTE | 2018-10-19 07:02 | OBGCSDC ---
General Delivery Information - General Info : 3 Para: 1 Abortions: 2 Type: Primary L&D Analgesia/Anesthesia Type: Epidural Admission Date: 10/16/18 Labs: Patient ABO/Rh B POSITIVE 10/16/18 06:45 Hct 29.6 % (38.0-47.0) L 10/17/18 05:15 Temp Pulse Resp BP Pulse Ox 10/18/18 20:29 36.3 C 89 18 110/68 95 10/18/18 16:45 37.1 C 80 16 99/64 L - Hospital Course Intrapartum: 10/16/18 11:04 Pt doing great - feels very relaxed. occas feels tightening - no pain. disc IUPC prn if cord compression is ongoing issue or ctxn monitoring prn. off/on nausea and wants to try zofran. on 8 mu/min pit - cat I tracing except one small variable with ctxn 10/16/18 14:36 Pt doing well. discussed AROM as pt on 20 mu/min pit and not uncomfortable. Pt declined PAIGE now and used nitrous during AROM - 14:25, clear. cx 3-4/95/0 will get PAIGE when ready - reports strong cramping now. 10/16/18 20:18 great progress today with complete approx 6:15. began having slight increase of baseline since approx 7:15 from 140s. low grade temp and given tyl at approx 7:45. making progress with pushing -- pt frustrated with demand of pushing 10/16/18 21:18 Pt very fatigued and frustrated - on exam with pushing still +1 -- adeq pelvis and pt desired attempt with vacuum - no descent and significant decel with third attempt. FHT baseline still up to 180s but maintaining variability. rec proceeding to c/s : 10/17/18 09:44 Pt seen and examined. Doing well, with no complaints. Pain is well controlled with Toradol so far. Pt has been OOB once, kim regular diet, brito in place and passing flatus. Denies any f/c/n/v/CP or SOB. Mild lochia. BF now, but baby boy is falling asleep on the breast. Denies any dizziness when up OOB. 10/18/18 13:38 Feeling good - would probably like to go home tomororw. Vaginal - Diagnosis Amniotic Fluid Color: Clear - Procedures Assisted Delivery Type: Vacuum Non-surgical Procedures: Amniotomy (14:25) - Delivery Providers Surgeon: Praveena Hamilton Patient Relations Representative: Fallon Voss Anesthesiologist: Dustin Starks - Delivery Indications for Current Section: Non-reas. Status Non-surgical Procedures: Amniotomy (14:25) Surgical Procedures: Unscheduled, Low Transverse Intra-op Complications: None EBL: [address] Data CONNOR: 10/23/18 Gestational Age: 39 week(s) and 3 day(s) [place] Delivery Date: 10/16/18 Delivery Time: 21:50 Sex of Infant: Male Weight (gm): 3765 g Score (1 Min): 8 Score (5 Min): 9 Twin A Weight (gm): 0 g Discharge Information - Discharge Information Condition: Good Instruction/Follow Up: See Instruction Sheet, Two Weeks (mood check/incision check), Six Weeks (routine PP visit)
--- NOTE | 2018-10-19 07:02 | OBPP ---
Progress Note Assessment/Plan: Assessment: 1) 33 y/o G3 now P1 s/p PCS secondary to arrest of descent and vacuum- assistance x 3 with tachy POD #3 - pt is stable 2) Anemia - pt is asymptomatic, encouraged iron supps. - Ready for home. Plan: Continue routine post-op care Encourage ambulation Brito to be removed this am support prn JENI Subjective/ Course: 10/17/18 09:44 Pt seen and examined. Doing well, with no complaints. Pain is well controlled with Toradol so far. Pt has been OOB once, kim regular diet, brito in place and passing flatus. Denies any f/c/n/v/CP or SOB. Mild lochia. BF now, but baby boy is falling asleep on the breast. Denies any dizziness when up OOB. 10/18/18 13:38 Feeling good - would probably like to go home tomororw. 10/19/18 11:48 Feeling good - ready for home. Needs oxy. OK w iron supps. Objective: 10/17/18 05:15 Patient ABO/Rh B POSITIVE 10/16/18 06:45 Temp Pulse Resp BP Pulse Ox 36.3 C 89 18 110/68 95 10/18/18 20:29 10/18/18 20:29 10/18/18 20:29 10/18/18 20:29 10/18/18 20:29 Physical Exam - Physical Exam Abdomen: incision (CDI steri strips sutures)
[2018-10-19 08:39] VITALS: BP 100/67
== END 2018-10-19 15:00 | disposition home or self-care (01) | DRG 788 ==
LOC: FLD 06:10 → FOB 10-17 01:35
PROVIDERS: ADMIT Obstetrics & Gynecology; ATTEND Obstetrics & Gynecology
DX: O62.0 Primary inadequate contractions (principal); Z37.0 Single live birth; Z3A.39 39 weeks gestation of pregnancy; O66.5 Attempted application of vacuum extractor and forceps; O66.40 Failed trial of labor, unspecified
CPT/HCPCS: J0456; J0690; J1885; J2250; J2274; J2370; J2590; J2704; J3105